=== PATIENT | female | born 1950 | race Caucasian/White ===

== ENCOUNTER 2017-05-30 09:56 | Emergency (ER) | payer MEDICARE ==
[~2017-05-30] VITALS: Ht 157.5 cm; Wt 53.0 kg
[2017-05-30] MEDS ORDERED: HYDROCODONE/ACE1 T11 PO (10:45)
[2017-05-30] MEDS ORDERED: CYCLOBENZAPR10 MG PO (10:45)
[2017-05-30 11:07] LABS: HEMATOCRIT 44.5 % (37.0-47.0); HEMOGLOBIN 14.7 g/dl (12.0-16.0); IMMATURE GRANULOCYTES 0.2 % (0.0-1.0); MEAN CELL VOLUME 94.3 fL CALC (80.0-100.0); MEAN CORPUSCULAR HGB 31.1 pG CALC (26.0-32.0); NEUT# 2.84 thou/uL (2.00-7.15); RED BLOOD COUNT 4.72 mill/uL (4.20-5.60); RED CELL DISTRI WIDTH 12.2 % (11.5-15.5)
[2017-05-30 11:21] LABS: ALBUMIN 3.8 g/dL (3.2-5.0); ALKALINE PHOSPHATASE 132 u/l (38-126); ANION GAP 14 (6-22 (CALC)); BILIRUBIN, TOTAL 0.7 mg/dL (0.0-1.4); BUN 13 mg/dL (8-23); BUN/CREATININE RATIO 20 (12-20 (CALC)); CARBON DIOXIDE 29 mmol/l (22-30); CHLORIDE 103 mmol/l (95-108); CREATININE 0.7 mg/dL (0.5-1.0); GFR > 60 ML/MIN (>=60 (CALC)); GFR FOR AFR.AMER. > 60 ML/MIN (>=60 (CALC)); LIPASE 72 u/l (23-300); POTASSIUM 3.5 mmol/l (3.5-5.1); SGOT/AST 45 u/l (9-36); SGPT/ALT 49 u/l (11-66); SODIUM 142 mmol/l (137-146); TOTAL PROTEIN 7.4 g/dL (6.3-8.2)
[2017-05-30] MEDS ORDERED: ZOFRAN4 M1 PO ×2 (11:48→16:36)
[2017-05-30] MEDS ORDERED: CIPRO XR500 MG PO ×2 (11:48→16:36)
[2017-05-30] MEDS ORDERED: METRONIDAZOL500 MG PO ×2 (11:48→16:36)
[2017-05-30 12:02] VITALS: BP 162/81
== END 2017-05-30 12:05 | disposition home or self-care (01) ==
LOC: ED 09:56
PROVIDERS: Family Medicine
DX: K57.32 Diverticulitis of large intestine without perforation or abscess without bleeding (principal)

== ENCOUNTER 2017-12-23 23:53 | Emergency (ER) | payer MEDICARE ==
[~2017-12-23] VITALS: Ht 157.5 cm; Wt 40.9 kg
[~2017-12-23 23:53] MED LIST: CIPRO XR500 MG PO; CYCLOBENZAPR10 MG PO; HYDROCODONE/ACE1 T11 PO; METRONIDAZOL500 MG PO; ZOFRAN4 M1 PO
[2017-12-24 01:48] LABS: HEMATOCRIT 41.1 % (37.0-47.0); HEMOGLOBIN 14.4 g/dl (12.0-16.0); IMMATURE GRANULOCYTES 0.4 % (0.0-5.0); MEAN CELL VOLUME 91.7 fL CALC (80.0-100.0); MEAN CORPUSCULAR HGB 32.1 pG CALC (26.0-32.0); NEUT# 4.01 thou/uL (2.00-7.15); RED BLOOD COUNT 4.48 mill/uL (4.20-5.60); RED CELL DISTRI WIDTH 12.1 % (11.5-15.5)
[2017-12-24 01:53] LABS: ALBUMIN 4.1 g/dL (3.2-5.0); ALKALINE PHOSPHATASE 88 u/l (38-126); BILIRUBIN, TOTAL 0.8 mg/dL (0.0-1.4); BUN 7 mg/dL (8-23); BUN/CREATININE RATIO 15 (12-20 (CALC)); CHLORIDE 98 mmol/l (95-108); CREATININE 0.5 mg/dL (0.5-1.0); GFR > 60 ML/MIN (>=60 (CALC)); GFR FOR AFR.AMER. > 60 ML/MIN (>=60 (CALC)); SGOT/AST 50 u/l (9-36); SGPT/ALT 40 u/l (11-66); TOTAL PROTEIN 7.8 g/dL (6.3-8.2)
[2017-12-24 01:58] LABS: INTERNATIONAL NORMALIZED RATIO 1.1 RATIO (0.7-1.3); PROTHROMBIN TIME 12.1 SECONDS (9.0-12.5)
[2017-12-24 02:00] LABS: ANION GAP 20 (6-22 (CALC)); CARBON DIOXIDE 18 mmol/l (22-30); ETHYL ALCOHOL 209 mg/dl (0-30); SODIUM 133 mmol/l (137-146)
[2017-12-24 02:04] LABS: MYOGLOBIN 57 ng/mL (0 - 62)
[2017-12-24 02:06] LABS: URINE BILIRUBIN - DIPSTICK NEGATIVE (NEGATIVE); URINE BLOOD DIPSTICK NEGATIVE (NEGATIVE); URINE COLOR YELLOW; URINE GLUCOSE - DIPSTICK >=1000 mg/dL (NEGATIVE); URINE KETONE NEGATIVE (NEGATIVE); URINE LEUK ESTERASE NEGATIVE (NEGATIVE); URINE NITRITE - DIPSTICK NEGATIVE (Negative); URINE PROTEIN - DIPSTICK NEGATIVE (NEG-TRACE); URINE UROBILINOGEN - DIPSTICK 0.2 E.U./dL (0.2)
[2017-12-24 02:08] LABS: URINE CLARITY SL CLOUDY
[2017-12-24 02:11] LABS: BARBITURATES NEGATIVE (NEGATIVE); COCAINE NEGATIVE (NEGATIVE); METHADONE NEGATIVE (NEGATIVE); OXCYCODONE NEGATIVE (NEGATIVE); TETRAHYDROCANNABIONOL POSITIVE (NEGATIVE); TRICYLIC ANTIDEPRESSANTS NEGATIVE (NEGATIVE)
[2017-12-24 02:58] VITALS: BP 208/88
== END 2017-12-24 02:58 | disposition short-term general hospital (02) ==
LOC: ED 23:53
PROVIDERS: Family Medicine
PROC: 0BH17EZ Insertion of Endotracheal Airway into Trachea, Via Natural or Artificial Opening (ICD-10-PCS; principal; 2017-12-24)
PROC: 0T9B70Z Drainage of Bladder with Drainage Device, Via Natural or Artificial Opening (ICD-10-PCS; 2017-12-24)
DX: I60.4 Nontraumatic subarachnoid hemorrhage from basilar artery (principal); I61.1 Nontraumatic intracerebral hemorrhage in hemisphere, cortical; I10 Essential (primary) hypertension; F10.129 Alcohol abuse with intoxication, unspecified